=== PATIENT | female | born 1960 ===

== ENCOUNTER 2025-03-10 14:52 | Outpatient (CLI) | payer BC, SELFPAY ==
--- NOTE | ~2025-03-10 | MR_ITS ---
MRI of the cervical spine Clinical History: Spondylosis Technique: Axial T2-weighted and gradient images, and sagittal T1-weighted, T2-weighted, and STIR wilberto ges were acquired. Findings: There is mild reversal normal cervical lordosis. No fracture or sublocation. No suspicious bone marrow signal abnormality seen. At C2-C3, there is no disc bulge or herniation. No spinal canal stenosis, cord compression, or neural foraminal narrowing. At C3-C4, there is moderate degenerative narrowing. There is large disc osteophyte complex posteriorl y with minimal flattening the ventral cord. Bilateral neural foramina are preserved. At C4-C5, there is advanced degenerative disc narrowing with minimal disc bulge. No spinal canal sten osis, cord compression, or definite left neural foraminal narrowing. Probable minimal right neural fo raminal narrowing. At C5-C6, there is moderate to advanced degenerative spurring. There is disc osteophyte complex with mild flattening of the ventral cord. There is right neural foraminal narrowing. Probable minimal left neural foraminal narrowing. At C6-C7, there is moderate degenerative disc narrowing. No significant disc bulge or herniation. No spinal canal stenosis, cord compression. Probable mild bilateral neural foraminal narrowing. No abnormal signal seen in the spinal cord. Paravertebral soft tissues are unremarkable. Impression: Moderate degenerative spondylosis, as detailed above. Reviewed, dictated and finalized at [facility]. Impression: Moderate degenerative spondylosis, as detailed above.
--- NOTE | ~2025-03-10 | MR_ITS ---
MRI of the lumbar spine Clinical History: Back pain, left-sided sciatica Technique: Axial T2-weighted images, and sagittal T1-weighted, T2-weighted, and T2 fat-sat images wer e acquired. Findings: There is no fracture or subluxation of the lumbar spine. Vertebral bodies maintain normal h eight and alignment. No bone marrow signal abnormality seen. At L1-L2, there is minimal disc bulge and mild facet arthropathy. No central canal stenosis or neural foraminal narrowing. At L2-L3, there is no significant disc bulge or herniation. No spinal canal stenosis or neural forami nal narrowing. At L3-L4, there is moderate degenerative distended with minimal disc bulge and minimal facet arthropa thy. No central canal stenosis or neural foraminal narrowing. At L4-L5, there is no disc bulge or herniation. There is mild to moderate facet arthropathy. No centr al canal stenosis or neural foraminal narrowing. L5-S1, there is moderate to advanced degenerative disc narrowing. There is mild disc bulge and mild f acet arthropathy. No central canal stenosis. There is mild left neural foraminal narrowing. Right michael ral foramen preserved. Probable tiny annular fissure. Paravertebral soft tissues are unremarkable. Impression: Mild degenerative spondylosis overall, as detailed above. Reviewed, dictated and finalized at [facility]. Impression: Mild degenerative spondylosis overall, as detailed above.
== END 2025-03-10 14:53 | disposition home or self-care (01) ==
PROVIDERS: PCP Internal Medicine; Visit Provider Internal Medicine
DX: M47.816 Spondylosis without myelopathy or radiculopathy, lumbar region (principal); M47.817 Spondylosis without myelopathy or radiculopathy, lumbosacral region; M47.812 Spondylosis without myelopathy or radiculopathy, cervical region
CPT/HCPCS: 72141; 72148